=== PATIENT | female | born 1945 | race Caucasian/White ===

== ENCOUNTER 2018-12-16 14:58 | Observation (INO) ==
[2018-12-16] MEDS ORDERED: ONDANSETRON 4 MG/2 ML VIAL IV STA (15:36)
[2018-12-16] MEDS ORDERED: SODIUM CHLORIDE 0.9% 1,000 ML IV STA (15:36)
[2018-12-16] MEDS ORDERED: KETOROLAC 30 MG/1 ML VIAL IV STA (15:36)
[2018-12-16 16:17] LABS: Basophils % 0.6 % (0.0-0.8); Eosinophils # 0.1 10*3/uL (0.0-0.87); Eosinophils % 1.8 % (0.00-10.9); Hematocrit 34.1 VOL% (35.7-47.0); Hemoglobin 11.8 GM/DL (12.0-16.0); Immature Granulocytes % 0.4 %; Immature Granulocytes Absolute 0.03 #; Lymphocytes # 2.6 10*3/uL (1.4-4.0); Lymphocytes % 38.5 % (21.3-54.2); Mean Corpuscular HGB Conc 34.6 GM/DL (32-36); Mean Corpuscular Hemoglobin 29 PG (27-34); Mean Corpuscular Volume 84.4 FL (87-102); Mean Platelet Volume 9.7 FL (9.6-12.0); Monocytes # 0.5 10*3/uL (0.11-0.8); Monocytes % 7.1 % (1.7-12.7); Neutrophils # 3.5 10*3/uL (1.4-7.4); Neutrophils % 51.6 % (38.7-73.9); Platelet Count 255 T/CUMM (130-400); Red Blood Count 4.04 MC/CUMM (3.8-5.5); White Blood Count 6.8 T/CUMM (4-12)
[2018-12-16 16:33] LABS: Calcium 8.5 MG/DL (8.5-10.1); Osmolality,Calculated 244.8 MOS/KG (273-304); Potassium 3.7 MMOL/L (3.5-5.1)
[2018-12-16] MEDS ORDERED: NICOTINE 21 MG/24 HR PATCH TRANSDERM PRN (17:54)
[2018-12-16] MEDS ORDERED: ACETAMINOPHEN 325 MG TABLET PO PRN (17:54)
[2018-12-16] MEDS ORDERED: ONDANSETRON 4 MG/2 ML VIAL IV PRN (17:54)
[2018-12-16 18:33] LABS: Free T4 (Free Thyroxine) 0.78 NG/DL (0.76-1.46); Thyroid Stimulating Hormone 1.54 uIU/ml (0.358-3.74)
[2018-12-16] MEDS ORDERED: PRIMIDONE 50 MG TABLET PO SCH (21:00)
[2018-12-16] MEDS: SODIUM CHLORIDE 0.9% 1,000 ML IV SCH (21:06)
[2018-12-16] MEDS: hydrALAZINE 25 MG TABLET PO SCH (21:37)
[2018-12-16] MEDS: ENOXAPARIN 40 MG/0.4 ML SYRINGE SUBCUT SCH (21:37)
[2018-12-16] MEDS: ROSUVASTATIN 10 MG TABLET PO SCH (21:37)
[2018-12-16] MEDS: HydrOXYzine PAMOATE 50 MG CAPSULE PO SCH (21:38)
[2018-12-17 04:36] LABS: Basophils % 0.4 % (0.0-0.8); Eosinophils # 0.1 10*3/uL (0.0-0.87); Eosinophils % 2.1 % (0.00-10.9); Hematocrit 30.8 VOL% (35.7-47.0); Hemoglobin 10.5 GM/DL (12.0-16.0); Immature Granulocytes % 0.4 %; Immature Granulocytes Absolute 0.02 #; Lymphocytes # 2.1 10*3/uL (1.4-4.0); Lymphocytes % 39.2 % (21.3-54.2); Mean Corpuscular HGB Conc 34.1 GM/DL (32-36); Mean Corpuscular Hemoglobin 29 PG (27-34); Mean Corpuscular Volume 85.3 FL (87-102); Mean Platelet Volume 9.9 FL (9.6-12.0); Monocytes # 0.5 10*3/uL (0.11-0.8); Neutrophils # 2.6 10*3/uL (1.4-7.4); Neutrophils % 48.9 % (38.7-73.9); Platelet Count 232 T/CUMM (130-400); Red Blood Count 3.61 MC/CUMM (3.8-5.5); White Blood Count 5.3 T/CUMM (4-12)
[2018-12-17] MEDS: SODIUM CHLORIDE 0.9% 1,000 ML IV SCH ×3 (04:52→20:15)
[2018-12-17 05:00] LABS: Calcium 7.7 MG/DL (8.5-10.1); Osmolality,Calculated 254.8 MOS/KG (273-304); Potassium 3.4 MMOL/L (3.5-5.1)
[2018-12-17] MEDS ORDERED: amLODIPine 5 MG TABLET PO SCH (09:00)
[2018-12-17] MEDS: amLODIPine 10 MG TABLET PO SCH (10:11)
[2018-12-17] MEDS: hydrALAZINE 25 MG TABLET PO SCH ×2 (10:11→20:15)
[2018-12-17] MEDS: ESTRADIOL 1 MG TABLET PO SCH (10:11)
[2018-12-17] MEDS: POTASSIUM CHLORIDE 20 MEQ TABLET PO PRN ×3 (10:11→19:18)
[2018-12-17] MEDS: PANTOPRAZOLE 40 MG TABLET PO SCH (10:11)
[2018-12-17] MEDS: PRIMIDONE 250 MG TABLET PO SCH ×3 (10:11→20:15)
[2018-12-17] MEDS: ENOXAPARIN 40 MG/0.4 ML SYRINGE SUBCUT SCH (20:15)
[2018-12-17] MEDS: ROSUVASTATIN 10 MG TABLET PO SCH (20:15)
[2018-12-17] MEDS: HydrOXYzine PAMOATE 50 MG CAPSULE PO SCH (20:16)
[2018-12-18] MEDS: SODIUM CHLORIDE 0.9% 1,000 ML IV SCH (04:13)
[2018-12-18 07:01] LABS: Calcium 8.1 MG/DL (8.5-10.1); Osmolality,Calculated 264.2 MOS/KG (273-304); Potassium 4.5 MMOL/L (3.5-5.1)
[2018-12-18 08:34] VITALS: BP 158/78
[2018-12-18] MEDS: PANTOPRAZOLE 40 MG TABLET PO SCH (09:41)
[2018-12-18] MEDS: hydrALAZINE 25 MG TABLET PO SCH (09:41)
[2018-12-18] MEDS: ESTRADIOL 1 MG TABLET PO SCH (09:41)
[2018-12-18] MEDS: PRIMIDONE 250 MG TABLET PO SCH (09:41)
[2018-12-18] MEDS: amLODIPine 10 MG TABLET PO SCH (09:42)
== END 2018-12-18 11:19 | disposition home health service (06) ==
LOC: EDBD → EDUNIT# → N.ED 14:58 → N.EDINP 14:58 → N.2E 19:20
PROVIDERS: ADMIT Internal Medicine; ATTEND Internal Medicine

== ENCOUNTER 2019-08-25 11:01 | Observation (INO) ==
[2019-08-25] MEDS ORDERED: SODIUM CHLORIDE 0.9% 1,000 ML IV STA (11:37)
[2019-08-25] MEDS ORDERED: ONDANSETRON 4 MG/2 ML VIAL IV STA (11:37)
[2019-08-25 12:21] LABS: Basophils # 0.1 10*3/uL (0.0-0.2); Basophils % 1.2 % (0.0-0.8); Eosinophils # 0.2 10*3/uL (0.0-0.87); Eosinophils % 4.7 % (0.00-10.9); Hematocrit 30.9 VOL% (35.7-47.0); Hemoglobin 10.6 GM/DL (12.0-16.0); Immature Granulocytes % 0.4 %; Immature Granulocytes Absolute 0.02 #; Lymphocytes # 1.6 10*3/uL (1.4-4.0); Lymphocytes % 32.2 % (21.3-54.2); Mean Corpuscular HGB Conc 34.3 GM/DL (32-36); Mean Corpuscular Volume 78.6 FL (87-102); Mean Platelet Volume 9.8 FL (9.6-12.0); Monocytes % 13.2 % (1.7-12.7); Neutrophils % 48.3 % (38.7-73.9); Platelet Count 294 T/CUMM (130-400); Red Blood Count 3.93 MC/CUMM (3.8-5.5); Red Cell Distribution Width 14.6 % (9.3-17.3); White Blood Count 5.1 T/CUMM (4-12)
[2019-08-25 12:42] LABS: Alanine Aminotransferase 16 U/L (13-56); Albumin 3.3 G/DL (3.4-5.0); Alkaline Phosphatase 82 U/L (45-117); Amylase 43 U/L (25-115); Aspartate Amino Transferase 25 U/L (0-37); Bilirubin,Total < 0.39 MG/DL (0.2-1.0); Blood Urea Nitrogen 4 MG/DL (7-18); Calcium 8.8 MG/DL (8.5-10.1); Estimated Glom Filtration Rate 77 ML/MIN; Glucose 94 MG/DL (74-106); Osmolality,Calculated 238.2 MOS/KG (273-304); Total Protein 7.5 G/DL (6.4-8.3)
[2019-08-25 13:58] LABS: Apearance,Urine CLOUDY (Clear); Bacteria,Urine Many /HPF (Few); Bilirubin,Urine Negative (Negative); Blood, Urine Moderate mg/dL (Negative); Glucose,Urine (UA) Negative (Negative); Ketones,Urine Negative (Negative); Mucus,Urine Occasional /LPF (Occasional); Nitrite,Urine Negative (Negative); Protein,Urine Negative; RBC,Urine 1 /HPF (0-4); Squamous Epithelial Cell,Urine Few /HPF (0-10); Urine Color Yellow (Yellow); Urine Specific Gravity 1.002 (1.001-1.035); Urine Urobilinogen < 2.0 EU/DL (0.2-1.0); WBC,Urine 1 /HPF (0-6)
[2019-08-25] MEDS ORDERED: ACETAMINOPHEN 325 MG TABLET PO PRN (15:37)
[2019-08-25] MEDS ORDERED: ONDANSETRON 4 MG/2 ML VIAL IV PRN (15:37)
[2019-08-25] MEDS ORDERED: DOCUSATE SODIUM 100 MG CAPSULE PO PRN (15:37)
[2019-08-25] MEDS ORDERED: MAGNESIUM SULF RIDER 2 GM in PREMIX 1 EACH IV ONE (15:42)
[2019-08-25] MEDS ORDERED: SODIUM CHLORIDE 0.9% 1,000 ML IV SCH (16:00)
[2019-08-25] MEDS ORDERED: ROSUVASTATIN 20 MG TABLET PO SCH (21:00)
[2019-08-25] MEDS ORDERED: ENOXAPARIN 40 MG/0.4 ML SYRINGE SUBCUT SCH (21:00)
[2019-08-25] MEDS: SODIUM CHLORIDE 1 GM TABLET PO SCH (21:08)
[2019-08-25] MEDS: PRIMIDONE 50 MG TABLET PO SCH (21:09)
[2019-08-25] MEDS: GABAPENTIN 600 MG TABLET PO SCH (21:10)
[2019-08-26 04:55] LABS: Basophils % 0.9 % (0.0-0.8); Eosinophils # 0.2 10*3/uL (0.0-0.87); Eosinophils % 4.9 % (0.00-10.9); Hematocrit 27.6 VOL% (35.7-47.0); Hemoglobin 9.1 GM/DL (12.0-16.0); Immature Granulocytes % 0.2 %; Immature Granulocytes Absolute 0.01 #; Lymphocytes # 1.8 10*3/uL (1.4-4.0); Lymphocytes % 39.3 % (21.3-54.2); Mean Corpuscular Volume 80.2 FL (87-102); Mean Platelet Volume 10.2 FL (9.6-12.0); Monocytes % 14.2 % (1.7-12.7); Neutrophils % 40.5 % (38.7-73.9); Platelet Count 287 T/CUMM (130-400); Red Blood Count 3.44 MC/CUMM (3.8-5.5); Red Cell Distribution Width 14.7 % (9.3-17.3); White Blood Count 4.5 T/CUMM (4-12)
[2019-08-26 05:22] LABS: Calcium 8.2 MG/DL (8.5-10.1); Osmolality,Calculated 250.2 MOS/KG (273-304)
[2019-08-26 07:55] VITALS: BP 137/74
[2019-08-26] MEDS ORDERED: ESTRADIOL 1 MG TABLET PO SCH (09:00)
[2019-08-26] MEDS ORDERED: PANTOPRAZOLE 40 MG TABLET PO SCH ×2 (09:00)
[2019-08-26] MEDS ORDERED: amLODIPine 5 MG TABLET PO SCH (09:00)
[2019-08-26] MEDS ORDERED: POTASSIUM CHLORIDE 8 MEQ CAPSULE PO SCH (09:00)
[2019-08-26] MEDS ORDERED: CITALOPRAM 40 MG TABLET PO SCH (09:00)
[2019-08-26] MEDS ORDERED: VALSARTAN/HCTZ 160-12.5 MG TABLET PO SCH (09:00)
[2019-08-26] MEDS: GABAPENTIN 600 MG TABLET PO SCH (09:05)
[2019-08-26] MEDS: PRIMIDONE 50 MG TABLET PO SCH (09:06)
[2019-08-26] MEDS: SODIUM CHLORIDE 1 GM TABLET PO SCH (09:06)
== END 2019-08-26 10:15 | disposition home or self-care (01) ==
LOC: EDBD → EDUNIT# → N.ED 11:01 → N.EDINP 11:01 → N.2E 16:53
PROVIDERS: ADMIT Internal Medicine; ATTEND Internal Medicine